=== PATIENT | male | born 1930 | race Caucasian/White ===

== ENCOUNTER → 2017-05-13 | Outpatient (CLI) | payer OTHER ==
[~2017-05-13] VITALS: Ht 170.2 cm; Wt 66.0 kg
[~2017-05-13] MED LIST: ADULT LOW DOSE81 MG PO; ALEVE220 MG PO; ALLOPURINOL 10100 M1 PO; ALLOPURINOL 30300 M1; ASPIRIN81 M2 PO; BENADRYL25 MG PO; CALCIUM 600 +1 EAC5 PO; CHLORZOXAZONE500 MG PO; COUMADIN 2 MG TA2 MG PO; D3 DOTS2000 UNIT PO; FLECAINIDE ACE100 MG PO; FLUOCINONI0.05 %/65 TOP; HYDROCODONE-AP1 EACH PO; OMEGA-31000 MG PO; RANITIDINE 150150 MG PO; SIMVASTATIN10 MG PO; TAMSULOSIN HCL0.4 M1 PO; TAMSULOSIN HCL0.4 MG PO; [UNRECOGNIZED DRUG - OTHER] TOP
[2017-05-13 12:49] VITALS: BP 129/77
== END | disposition home or self-care (01) ==
LOC: PAIN 07:23
DX: M19.011 Primary osteoarthritis, right shoulder (principal); M19.012 Primary osteoarthritis, left shoulder; G89.29 Other chronic pain; M10.9 Gout, unspecified; M19.90 Unspecified osteoarthritis, unspecified site; I25.10 Atherosclerotic heart disease of native coronary artery without angina pectoris; K21.9 Gastro-esophageal reflux disease without esophagitis; Z79.899 Other long term (current) drug therapy; Z98.890 Other specified postprocedural states; Z90.49 Acquired absence of other specified parts of digestive tract

== ENCOUNTER → 2018-11-16 | Outpatient (CLI) | payer OTHER ==
[~2018-11-16] VITALS: Ht 170.2 cm; Wt 66.7 kg
[~2018-11-16] MED LIST changes: +CENTRUM SILVER1 EAC2 PO; +FISH OIL 1,001000 M2 PO; +MELATONIN5 M1 PO; +TRAZODONE HCL50 MG PO
--- NOTE | 2018-11-17 16:07 | PATH ---
[facility] [address] [place] [address] PATHOLOGY RPT PROCEDURE Name: JONATHAN BONILLA Room #: [facility] MCitlaly.#: [id number] Admission: 11/16/18 Date of : 32 Discharge: Report #: [id number] Path Case #: [id number] [facility] Accession Number: [id number] . 01 Material submitted: . SIGMOID COLON POLYP . 01 Clinical history: . Pre-OP DX: Heme positive stool Post-OP DX: Colon polyp . 02 Diagnosis: Polyp, sigmoid polyp, endoscopic biopsy: - Hyperplastic polyp. - Negative for dysplasia. (IUV:joanna; 11/17/2018) QMS/11/17/2018 . 02 Electronically signed: . Sarah Coyle MD, Pathologist NPI- [id number] . 01 Gross description: . Received in formalin labeled "Jonathan Bonilla, sigmoid polyp BX," is a single segment of palma soft tissue measuring 0.2 cm in maximum dimension. The specimen is entirely submitted in cassette A1. (TSD; 11/16/2018) TOB/TOB . 02 Pathologist provided ICD-10: K63.5 . 02 CPT . 899833 Specimen Comment: A courtesy copy of this report has been sent to Specimen Comment: [phone], . Specimen Comment: Report sent to and Performed at: [address], [place] [id number] MD Shlomo Xavier MD Phone: [phone] Performed at: [address] [id number] MD Sarah Coyle MD Phone: [phone]
== END | disposition home or self-care (01) ==
LOC: GI 08:13
DX: K63.5 Polyp of colon (principal); K21.9 Gastro-esophageal reflux disease without esophagitis; N40.0 Benign prostatic hyperplasia without lower urinary tract symptoms; M10.9 Gout, unspecified; I48.92 Unspecified atrial flutter; Z86.010 Personal history of colon polyps; Z90.49 Acquired absence of other specified parts of digestive tract; Z98.0 Intestinal bypass and anastomosis status; Z96.652 Presence of left artificial knee joint; Z98.890 Other specified postprocedural states; Z98.41 Cataract extraction status, right eye; Z98.42 Cataract extraction status, left eye; Z79.899 Other long term (current) drug therapy; Z79.01 Long term (current) use of anticoagulants
CPT/HCPCS: 62110; 62900

== ENCOUNTER → 2019-11-22 | Outpatient (CLI) | payer OTHER | LOC: SJCVC 10:01 | DX: Z51.81 Encounter for therapeutic drug level monitoring (principal); I48.0 Paroxysmal atrial fibrillation; K21.9 Gastro-esophageal reflux disease without esophagitis; E78.5 Hyperlipidemia, unspecified; Z79.01 Long term (current) use of anticoagulants ==

== ENCOUNTER → 2019-12-20 | Outpatient (CLI) | payer OTHER | LOC: SJCVC 09:30 | DX: Z51.81 Encounter for therapeutic drug level monitoring (principal); I48.0 Paroxysmal atrial fibrillation; K21.9 Gastro-esophageal reflux disease without esophagitis; E78.5 Hyperlipidemia, unspecified; Z79.01 Long term (current) use of anticoagulants ==

== ENCOUNTER → 2019-12-27 | Outpatient (CLI) | payer OTHER | LOC: SJCVC 09:15 | DX: Z51.81 Encounter for therapeutic drug level monitoring (principal); I48.0 Paroxysmal atrial fibrillation; K21.9 Gastro-esophageal reflux disease without esophagitis; E78.5 Hyperlipidemia, unspecified; Z79.01 Long term (current) use of anticoagulants ==

== ENCOUNTER → 2020-01-03 | Outpatient (CLI) | payer OTHER | LOC: SJCVC 09:12 | DX: Z51.81 Encounter for therapeutic drug level monitoring (principal); I48.0 Paroxysmal atrial fibrillation; K21.9 Gastro-esophageal reflux disease without esophagitis; E78.5 Hyperlipidemia, unspecified; Z79.01 Long term (current) use of anticoagulants ==

== ENCOUNTER → 2020-01-17 | Outpatient (CLI) | payer OTHER ==
[~2020-01-17] MED LIST changes: +COUMADIN 1MG TAB1 M1 PO; +COUMADIN 2.5MG2.5 M1 PO; +LEVO-T50 MCG PO; +PACERONE200 MG PO; +VITAMIN D310 MC2 PO
== END ==
LOC: SJCVC 09:28
DX: Z51.81 Encounter for therapeutic drug level monitoring (principal); K21.9 Gastro-esophageal reflux disease without esophagitis; I48.0 Paroxysmal atrial fibrillation; E78.5 Hyperlipidemia, unspecified; Z79.01 Long term (current) use of anticoagulants

== ENCOUNTER → 2020-01-27 | Outpatient (CLI) | payer OTHER | LOC: SJCVC 10:25 | DX: R94.31 Abnormal electrocardiogram [ECG] [EKG] (principal); I44.0 Atrioventricular block, first degree; I48.0 Paroxysmal atrial fibrillation; I49.5 Sick sinus syndrome; I48.92 Unspecified atrial flutter; E78.5 Hyperlipidemia, unspecified; K21.9 Gastro-esophageal reflux disease without esophagitis; Z79.01 Long term (current) use of anticoagulants; Z82.49 Family history of ischemic heart disease and other diseases of the circulatory system; Z87.891 Personal history of nicotine dependence ==

== ENCOUNTER 2020-01-31 06:30 | Observation (INO) | payer OTHER ==
[2020-01-31] VITALS (9 sets, daily range): BP systolic 140–177; BP diastolic 70–92
[~2020-01-31] VITALS: Ht 170.2 cm; Wt 68.0 kg
--- NOTE | ~2020-01-31 | P ---
[facility] [place] [address] PROCEDURE REPORT Name: ROSMERY BONILLA Room #: 219-P [facility] M.RSergo#: [id number] Admission: 01/31/20 Attend Phys: Ruddy Ambriz MD Discharge: 02/01/20 Date of : 32 Report #: [id number] THIS REPORT FOR: cc: Kimberlee Hollis MD,Ruddy Patino MD, MD ~ CC: Ruddy Hollis PROCEDURE PERFORMED: Pacemaker implantation. PREOPERATIVE DIAGNOSES: Sick sinus syndrome. HISTORY: The patient is an 89-year-old with symptomatic sinus bradycardia here for dual-chamber pacemaker implantation. ANESTHESIA: The patient underwent MAC anesthesia with no anesthesia related complications. DESCRIPTION OF PROCEDURE: The patient underwent informed consent. We discussed the details of the procedure including the risks, which include but not limited to bleeding, infection, vascular damage, cardiac perforation, pneumothorax. He understood these risks and is willing to proceed. The patient was brought to EP laboratory in a fasting and sedated state, prepped and draped in a sterile fashion, underwent venogram showing patency of left axillary vein and received IV antibiotics. Next, I injected lidocaine at the incision site. Incision was made, pocket was created over the prepectoral fascia. Access was obtained twice to the left axillary vein and sheaths were positioned using the modified Seldinger technique. Next, leads were positioned into the right atrial appendage, right ventricular apex, both with adequate pacing and sensing thresholds. Leads were sutured to the prepectoral fascia. Device was connected. Pocket was closed in 2 layers and the patient awoke neurologically and hemodynamically intact. No complications and no significant bleeding. Implanted pacemaker, [employer] model #2272, serial #[id number]. Atrial lead, [employer], model #2088, serial #[id number]. Ventricular lead, [employer], model #2088, 58 cm, serial #[id number]. Atrial lead demonstrated P-wave of 3.4 millivolts, pacing impedance 490 ohms, pacing threshold 0.75 volts at 0.4 milliseconds. RV lead demonstrated R-wave 9.7 millivolts, pacing impedance of 690 ohms, pacing threshold 0.75 volts at 0.4 milliseconds. Device was programmed to DDDR 60-120 mode. [facility] [address] [place] [address] PROCEDURE REPORT Name: ROSMERY BONILLA Room #: 219-P [facility] Devonte Andres#: [id number] Admission: 01/31/20 Attend Phys: Ruddy Ambriz MD Discharge: 02/01/20 Date of : 32 Report #: [id number] CONCLUSIONS: Successful dual-chamber pacemaker implantation. By: [id number] Ruddy Ambriz MD /nt
[~2020-01-31 06:30] MED LIST changes: -COUMADIN 1MG TAB1 M1 PO; -COUMADIN 2.5MG2.5 M1 PO; -LEVO-T50 MCG PO; -PACERONE200 MG PO; -VITAMIN D310 MC2 PO
[2020-01-31] MEDS ORDERED: VITAMIN D310 MC2 PO (07:35)
[2020-01-31] MEDS ORDERED: LEVO-T50 MCG PO (07:35)
[2020-01-31] MEDS ORDERED: COUMADIN 2.5MG2.5 M1 PO (07:37)
[2020-01-31] MEDS ORDERED: COUMADIN 1MG TAB1 M1 PO (07:38)
[2020-01-31 07:48] LABS: ABSOLUTE NEUTROPHILS 2.4 thou/uL (1.4-8.2); BASOPHILS 1.4 % (0.0-2.0); EOSINOPHILS 2.6 % (0.0-3.0); HEMATOCRIT 42.7 % (42.0-52.0); HEMOGLOBIN 14.4 gm/dL (14.0-18.0); LYMPHOCYTES 36.4 % (24.0-44.0); MCHC 33.7 g/dL (28.0-37.0); MCV 106.7 fL (80.0-100.0); PLATELET COUNT 237 thou/uL (150-400); POLYS 47.6 % (36.0-66.0); RDW 14.8 % (10.5-14.5); WBC 5.1 thou/uL (4.0-11.0)
[2020-01-31 07:52] LABS: CALCIUM 9.3 mg/dL (8.5-10.1); CREATININE 1.6 mg/dL (0.7-1.3); INR 1.3; POTASSIUM 4.4 mmol/L (3.5-5.1); PROTIME 13.1 Seconds (9.3-11.4)
[2020-01-31 07:58] LABS: ALBUMIN 3.7 g/dL (3.4-5.0); TOTAL BILIRUBIN 0.7 mg/dL (<0.1-1.0); TOTAL PROTEIN 6.8 g/dL (6.4-8.2)
[2020-01-31 09:04] LABS: MACROCYTES 2+
--- NOTE | 2020-01-31 14:41 | NUR ---
ASSUMED CARE OF PT AT 1200. PT ALERT AND ORIENTED TIMES FOUR. VSS. LEFT CHEST PACEMAKER PLACED TODAY, NO DRESSING SITE GLUDED NO S/S OF INFECTION. PT MARY PAIN/SOA. PT TOLEARTES MEDS AND MEALS. PT SLOWLY PROGRESSING TOWRADS POC GOALS.
[2020-02-01 04:22] VITALS: BP 136/73
--- NOTE | 2020-02-01 05:11 | NUR ---
Pt. stated he didn't sleep much despite sleep med. Denies any pain. Pacemaker site well approximated. No signs of infection. Kept pt. on bedrest all night per order. Left arm immobilizer in place.A paced per tele. SCD's in place. Unable to void at HS , bladder scanned and showed >700. Dr. Matamoros notified and order received. Straight cathed x1 around 2215 and got 800 ml. Flomax given at HS. Pt. able to urinate this am. Making progress towards care plan goals.
[2020-02-01] MEDS ORDERED: PACERONE200 MG PO (08:00)
[2020-02-01 09:14] VITALS: BP 127/78
--- NOTE | 2020-02-01 10:53 | NUR ---
TOOK OVER CARE OF PT AT 0700, PT RESTING IN BED, ALERT AND ORIENTED AT 0710, ASSESSED AT 0745, VSS, REVIEWED POC WITH PT, VERBALIZED UNDERSTANDING, DR DELGADO IN TO SEE PT, ROSEANNA WAGGONER IN TO SEE PT WELL. LEFT ARM IMMOBILIZER REMOVED BY TENT FINISHER. 1050 [address]BUL[address] HALLWAY AND WAS REMINDED TO SLOW DOWN AND NOT USE LEFT ARM ON WALKER, PT WAS ANXIOUS TO GET MOVING. WILL CONTINUE TO REINFORCE SLOWER, STEADY GAIT.
[2020-02-01 12:30] VITALS: BP 124/72
[2020-02-01 12:45] VITALS: BP 124/72
--- NOTE | 2020-02-01 14:43 | NUR ---
ASSUMED CARE OF PT APPROX 1300 W/REPORT OF UPCOMING D/C AT 1400. PRIOR NURSE DID MOST OF THE D/C, HE SIGNED ANOTHER PAPER IN MY CARE, IV AND TELE REMOVED WITH GOOD EFFECT. ASKED HIM TO HAVE NEPHEW CALL BEFORE WE TOOK HIM DOWNSTAIRS . HE ACQUIESCED. HE STATES HE DIDN'T WANT TO LEAVE, FEELS LONELY AND ENJOYED TALKING WITH EVERYONE HERE AT THE HOSPITAL. ASKED HIM ABOUT POSSIBLY VOLUNTEERING, WHEN ABLE, AT INTERMEDIATE OR FACILITIES, HE SAID HE HAS DONE THIS BEFORE. WALKED HALLS INDEPENDENTLY AND STEADILY WHILE WAITING FOR HIS RIDE
== END 2020-02-01 14:19 | disposition home or self-care (01) ==
LOC: CATH 06:30 → 2N 11:14 → CATH 12:47 → 2N 02-01 14:19
PROVIDERS: ADMIT Internal Medicine Cardiovascular Disease
DX: I49.5 Sick sinus syndrome (principal); I48.91 Unspecified atrial fibrillation; R55 Syncope and collapse
CPT/HCPCS: 62110; 62900; 70005

== ENCOUNTER → 2020-02-04 | Outpatient (CLI) | payer OTHER ==
[~2020-02-04] MED LIST changes: +COUMADIN 1MG TAB1 M1 PO; +COUMADIN 2.5MG2.5 M1 PO; +LEVO-T50 MCG PO; +PACERONE200 MG PO; +VITAMIN D310 MC2 PO
== END ==
LOC: CAT 10:04
DX: R91.8 Other nonspecific abnormal finding of lung field (principal); Z95.0 Presence of cardiac pacemaker

== ENCOUNTER → 2020-02-08 | Outpatient (CLI) | payer OTHER | LOC: SJCVC 10:57 | PROVIDERS: ATTEND Internal Medicine Cardiovascular Disease | DX: Z45.018 Encounter for adjustment and management of other part of cardiac pacemaker (principal); I48.0 Paroxysmal atrial fibrillation; K21.9 Gastro-esophageal reflux disease without esophagitis; E78.5 Hyperlipidemia, unspecified; Z82.49 Family history of ischemic heart disease and other diseases of the circulatory system; Z79.899 Other long term (current) drug therapy; Z79.01 Long term (current) use of anticoagulants; Z87.891 Personal history of nicotine dependence ==

== ENCOUNTER → 2020-03-31 | Outpatient (CLI) | payer OTHER | LOC: SJCVC 13:21 | DX: R94.31 Abnormal electrocardiogram [ECG] [EKG] (principal); I48.0 Paroxysmal atrial fibrillation; I49.5 Sick sinus syndrome; I95.1 Orthostatic hypotension; E78.5 Hyperlipidemia, unspecified; K21.9 Gastro-esophageal reflux disease without esophagitis; Z79.01 Long term (current) use of anticoagulants; Z95.0 Presence of cardiac pacemaker; Z82.49 Family history of ischemic heart disease and other diseases of the circulatory system; Z79.899 Other long term (current) drug therapy; Z87.891 Personal history of nicotine dependence ==

== ENCOUNTER → 2020-05-01 | Outpatient (CLI) | payer OTHER | LOC: SJCVC 10:22 | PROVIDERS: ATTEND Internal Medicine | DX: Z51.81 Encounter for therapeutic drug level monitoring (principal); Z87.891 Personal history of nicotine dependence; Z79.01 Long term (current) use of anticoagulants ==

== ENCOUNTER → 2020-05-08 | Outpatient (CLI) | payer OTHER | LOC: SJCVC 10:55 | PROVIDERS: ATTEND Internal Medicine | DX: Z51.81 Encounter for therapeutic drug level monitoring (principal); Z79.01 Long term (current) use of anticoagulants ==

== ENCOUNTER → 2020-05-15 | Outpatient (CLI) | payer OTHER | LOC: SJCVC 09:44 | PROVIDERS: ATTEND Internal Medicine | DX: Z51.81 Encounter for therapeutic drug level monitoring (principal); I48.0 Paroxysmal atrial fibrillation; K21.9 Gastro-esophageal reflux disease without esophagitis; E78.5 Hyperlipidemia, unspecified; Z79.01 Long term (current) use of anticoagulants ==

== ENCOUNTER → 2020-05-29 | Outpatient (CLI) | payer OTHER | LOC: SJCVC 09:56 | PROVIDERS: ATTEND Internal Medicine | DX: Z51.81 Encounter for therapeutic drug level monitoring (principal); I48.0 Paroxysmal atrial fibrillation; K21.9 Gastro-esophageal reflux disease without esophagitis; E78.5 Hyperlipidemia, unspecified; Z79.01 Long term (current) use of anticoagulants; Z79.899 Other long term (current) drug therapy ==

== ENCOUNTER → 2020-06-05 | Outpatient (CLI) | payer OTHER | LOC: SJCVC 09:08 | PROVIDERS: ATTEND Internal Medicine | DX: Z51.81 Encounter for therapeutic drug level monitoring (principal); Z79.01 Long term (current) use of anticoagulants ==

== ENCOUNTER → 2020-06-12 | Outpatient (CLI) | payer OTHER | LOC: SJCVC 08:55 | PROVIDERS: ATTEND Internal Medicine | DX: Z51.81 Encounter for therapeutic drug level monitoring (principal); Z79.01 Long term (current) use of anticoagulants; Z87.891 Personal history of nicotine dependence ==

== ENCOUNTER → 2020-06-19 | Outpatient (CLI) | payer OTHER | LOC: SJCVC 09:02 | PROVIDERS: ATTEND Internal Medicine | DX: Z51.81 Encounter for therapeutic drug level monitoring (principal); I48.0 Paroxysmal atrial fibrillation; E78.5 Hyperlipidemia, unspecified; K21.9 Gastro-esophageal reflux disease without esophagitis; Z79.01 Long term (current) use of anticoagulants; Z79.899 Other long term (current) drug therapy; Z95.0 Presence of cardiac pacemaker ==

== ENCOUNTER → 2020-07-03 | Outpatient (CLI) | payer OTHER | LOC: SJCVC 09:16 | PROVIDERS: ATTEND Internal Medicine | DX: Z51.81 Encounter for therapeutic drug level monitoring (principal); I48.0 Paroxysmal atrial fibrillation; K21.9 Gastro-esophageal reflux disease without esophagitis; E78.5 Hyperlipidemia, unspecified; Z95.0 Presence of cardiac pacemaker; Z79.01 Long term (current) use of anticoagulants; Z79.899 Other long term (current) drug therapy ==

== ENCOUNTER → 2020-07-11 | Outpatient (CLI) | payer OTHER | LOC: SJCVC 09:49 | PROVIDERS: ATTEND Internal Medicine | DX: Z51.81 Encounter for therapeutic drug level monitoring (principal); I48.0 Paroxysmal atrial fibrillation; K21.9 Gastro-esophageal reflux disease without esophagitis; E78.5 Hyperlipidemia, unspecified; Z95.0 Presence of cardiac pacemaker; Z79.01 Long term (current) use of anticoagulants; Z79.899 Other long term (current) drug therapy ==

== ENCOUNTER → 2020-07-24 | Outpatient (CLI) | payer OTHER | LOC: SJCVC 11:04 | PROVIDERS: ATTEND Internal Medicine | DX: Z51.81 Encounter for therapeutic drug level monitoring (principal); Z79.01 Long term (current) use of anticoagulants; I48.92 Unspecified atrial flutter; K21.9 Gastro-esophageal reflux disease without esophagitis; I48.0 Paroxysmal atrial fibrillation ==

== ENCOUNTER → 2020-08-07 | Outpatient (CLI) | payer OTHER | LOC: SJCVC 09:00 | PROVIDERS: ATTEND Internal Medicine | DX: Z51.81 Encounter for therapeutic drug level monitoring (principal); I48.0 Paroxysmal atrial fibrillation; K21.9 Gastro-esophageal reflux disease without esophagitis; E78.5 Hyperlipidemia, unspecified; Z95.0 Presence of cardiac pacemaker; Z79.01 Long term (current) use of anticoagulants; Z79.899 Other long term (current) drug therapy ==

== ENCOUNTER → 2020-09-04 | Outpatient (CLI) | payer OTHER | LOC: SJCVC 10:18 | PROVIDERS: ATTEND Internal Medicine | DX: Z51.81 Encounter for therapeutic drug level monitoring (principal); I48.0 Paroxysmal atrial fibrillation; K21.9 Gastro-esophageal reflux disease without esophagitis; Z95.0 Presence of cardiac pacemaker; Z79.01 Long term (current) use of anticoagulants; Z79.899 Other long term (current) drug therapy ==

== ENCOUNTER → 2020-10-02 | Outpatient (CLI) | payer OTHER | LOC: SJCVC 10:43 | PROVIDERS: ATTEND Internal Medicine | DX: I48.0 Paroxysmal atrial fibrillation (principal); R94.31 Abnormal electrocardiogram [ECG] [EKG]; I49.5 Sick sinus syndrome; I95.1 Orthostatic hypotension; E78.5 Hyperlipidemia, unspecified; Z95.0 Presence of cardiac pacemaker; Z79.01 Long term (current) use of anticoagulants; Z79.899 Other long term (current) drug therapy ==

== ENCOUNTER → 2020-10-09 | Outpatient (CLI) | payer OTHER | LOC: SJCVC 09:28 | PROVIDERS: ATTEND Internal Medicine | DX: Z51.81 Encounter for therapeutic drug level monitoring (principal); I48.0 Paroxysmal atrial fibrillation; K21.9 Gastro-esophageal reflux disease without esophagitis; Z95.0 Presence of cardiac pacemaker; E78.5 Hyperlipidemia, unspecified; Z79.01 Long term (current) use of anticoagulants; Z79.899 Other long term (current) drug therapy ==

== ENCOUNTER → 2020-10-23 | Outpatient (CLI) | payer OTHER | LOC: SJCVC 10:52 | PROVIDERS: ATTEND Internal Medicine | DX: Z51.81 Encounter for therapeutic drug level monitoring (principal); Z79.01 Long term (current) use of anticoagulants; Z79.899 Other long term (current) drug therapy ==

== ENCOUNTER → 2020-11-20 | Outpatient (CLI) | payer OTHER | LOC: SJCVC 10:46 | PROVIDERS: ATTEND Internal Medicine | DX: Z51.81 Encounter for therapeutic drug level monitoring (principal); Z79.01 Long term (current) use of anticoagulants; Z79.899 Other long term (current) drug therapy ==

== ENCOUNTER → 2020-12-04 | Outpatient (CLI) | payer OTHER | LOC: SJCVC 09:12 | PROVIDERS: ATTEND Internal Medicine | DX: Z51.81 Encounter for therapeutic drug level monitoring (principal); Z79.01 Long term (current) use of anticoagulants; Z79.899 Other long term (current) drug therapy; Z90.89 Acquired absence of other organs; Z98.890 Other specified postprocedural states; Z87.891 Personal history of nicotine dependence; Z72.89 Other problems related to lifestyle ==

== ENCOUNTER → 2020-12-19 | Outpatient (CLI) | payer OTHER | LOC: SJCVC 11:35 | PROVIDERS: ATTEND Internal Medicine | DX: Z51.81 Encounter for therapeutic drug level monitoring (principal); K21.9 Gastro-esophageal reflux disease without esophagitis; I48.0 Paroxysmal atrial fibrillation; E78.5 Hyperlipidemia, unspecified; Z95.0 Presence of cardiac pacemaker; Z79.01 Long term (current) use of anticoagulants ==

== ENCOUNTER → 2020-12-26 | Outpatient (CLI) | payer OTHER | LOC: SJCVC 11:26 | PROVIDERS: ATTEND Internal Medicine | DX: Z51.81 Encounter for therapeutic drug level monitoring (principal); K21.9 Gastro-esophageal reflux disease without esophagitis; I48.0 Paroxysmal atrial fibrillation; I49.5 Sick sinus syndrome; E78.5 Hyperlipidemia, unspecified; Z95.0 Presence of cardiac pacemaker; Z79.01 Long term (current) use of anticoagulants ==

== ENCOUNTER → 2021-01-01 | Outpatient (CLI) | payer OTHER | LOC: SJCVC 10:16 | PROVIDERS: ATTEND Internal Medicine | DX: Z51.81 Encounter for therapeutic drug level monitoring (principal); K21.9 Gastro-esophageal reflux disease without esophagitis; I48.0 Paroxysmal atrial fibrillation; E78.5 Hyperlipidemia, unspecified; Z79.01 Long term (current) use of anticoagulants; Z95.0 Presence of cardiac pacemaker ==

== ENCOUNTER → 2021-01-08 | Outpatient (CLI) | payer OTHER | LOC: SJCVC 09:15 | PROVIDERS: ATTEND Internal Medicine | DX: Z51.81 Encounter for therapeutic drug level monitoring (principal); I48.0 Paroxysmal atrial fibrillation; K21.9 Gastro-esophageal reflux disease without esophagitis; E78.5 Hyperlipidemia, unspecified; Z95.0 Presence of cardiac pacemaker; Z79.01 Long term (current) use of anticoagulants; Z79.899 Other long term (current) drug therapy ==

== ENCOUNTER → 2021-01-22 | Outpatient (CLI) | payer OTHER | LOC: SJCVC 09:34 | PROVIDERS: ATTEND Internal Medicine | DX: Z51.81 Encounter for therapeutic drug level monitoring (principal); Z79.01 Long term (current) use of anticoagulants; Z79.899 Other long term (current) drug therapy ==

== ENCOUNTER → 2021-02-19 | Outpatient (CLI) | payer OTHER | LOC: SJCVC 09:02 | PROVIDERS: ATTEND Internal Medicine | DX: Z51.81 Encounter for therapeutic drug level monitoring (principal); K21.9 Gastro-esophageal reflux disease without esophagitis; I48.0 Paroxysmal atrial fibrillation; I49.5 Sick sinus syndrome; E78.5 Hyperlipidemia, unspecified; Z95.0 Presence of cardiac pacemaker; Z79.01 Long term (current) use of anticoagulants; Z79.899 Other long term (current) drug therapy; Z87.891 Personal history of nicotine dependence; Z72.89 Other problems related to lifestyle ==

== ENCOUNTER → 2021-02-26 | Outpatient (CLI) | payer OTHER | LOC: SJCVC 09:01 | PROVIDERS: ATTEND Internal Medicine | DX: Z51.81 Encounter for therapeutic drug level monitoring (principal); I48.0 Paroxysmal atrial fibrillation; K21.9 Gastro-esophageal reflux disease without esophagitis; I48.92 Unspecified atrial flutter; I49.5 Sick sinus syndrome; Z79.01 Long term (current) use of anticoagulants ==

== ENCOUNTER → 2021-03-12 | Outpatient (CLI) | payer OTHER | LOC: SJCVC 09:00 | PROVIDERS: ATTEND Internal Medicine | DX: Z51.81 Encounter for therapeutic drug level monitoring (principal); I48.0 Paroxysmal atrial fibrillation; I48.92 Unspecified atrial flutter; I49.5 Sick sinus syndrome; K21.9 Gastro-esophageal reflux disease without esophagitis; E78.5 Hyperlipidemia, unspecified; Z95.0 Presence of cardiac pacemaker; Z79.01 Long term (current) use of anticoagulants ==

== ENCOUNTER → 2021-03-26 | Outpatient (CLI) | payer OTHER | LOC: SJCVC 10:31 | PROVIDERS: ATTEND Internal Medicine | DX: R94.31 Abnormal electrocardiogram [ECG] [EKG] (principal); I51.7 Cardiomegaly; I44.0 Atrioventricular block, first degree; I48.0 Paroxysmal atrial fibrillation; I49.5 Sick sinus syndrome; I95.1 Orthostatic hypotension; E78.5 Hyperlipidemia, unspecified; Z79.01 Long term (current) use of anticoagulants; Z95.0 Presence of cardiac pacemaker; Z79.899 Other long term (current) drug therapy; Z87.891 Personal history of nicotine dependence; Z72.89 Other problems related to lifestyle ==

== ENCOUNTER → 2021-04-23 | Outpatient (CLI) | payer OTHER | LOC: SJCVC 09:13 | PROVIDERS: ATTEND Internal Medicine | DX: Z51.81 Encounter for therapeutic drug level monitoring (principal); I48.91 Unspecified atrial fibrillation; I48.92 Unspecified atrial flutter; E78.5 Hyperlipidemia, unspecified; K21.9 Gastro-esophageal reflux disease without esophagitis; A38.9 Scarlet fever, uncomplicated; R55 Syncope and collapse; Z79.01 Long term (current) use of anticoagulants; Z79.899 Other long term (current) drug therapy; Z87.891 Personal history of nicotine dependence; Z72.89 Other problems related to lifestyle ==

== ENCOUNTER → 2021-05-21 | Outpatient (CLI) | payer OTHER | LOC: SJCVC 09:38 | PROVIDERS: ATTEND Internal Medicine | DX: Z51.81 Encounter for therapeutic drug level monitoring (principal); I48.0 Paroxysmal atrial fibrillation; I95.1 Orthostatic hypotension; E78.5 Hyperlipidemia, unspecified; K21.9 Gastro-esophageal reflux disease without esophagitis; Z79.01 Long term (current) use of anticoagulants; Z79.899 Other long term (current) drug therapy; Z87.891 Personal history of nicotine dependence; Z72.89 Other problems related to lifestyle ==

== ENCOUNTER → 2021-05-28 | Outpatient (CLI) | payer OTHER | LOC: SJCVC 09:13 | PROVIDERS: ATTEND Internal Medicine | DX: Z51.81 Encounter for therapeutic drug level monitoring (principal); I48.0 Paroxysmal atrial fibrillation; K21.9 Gastro-esophageal reflux disease without esophagitis; E78.5 Hyperlipidemia, unspecified; Z79.01 Long term (current) use of anticoagulants ==

== ENCOUNTER → 2021-06-25 | Outpatient (CLI) | payer OTHER | LOC: SJCVC 09:29 | PROVIDERS: ATTEND Internal Medicine | DX: Z51.81 Encounter for therapeutic drug level monitoring (principal); I48.0 Paroxysmal atrial fibrillation; I48.92 Unspecified atrial flutter; K21.9 Gastro-esophageal reflux disease without esophagitis; E78.5 Hyperlipidemia, unspecified; Z79.01 Long term (current) use of anticoagulants; Z95.0 Presence of cardiac pacemaker ==